=== PATIENT | female | born 1960 | race Caucasian/White ===

== ENCOUNTER → 2017-03-10 | Outpatient (CLI) | payer OTHER ==
--- NOTE | 2017-03-10 17:07 | XCELERA REPORT ---
[address] [address] Upper Extremity Arterial Evaluation Name: MATEO KHOURY Age: 56 yrs Gender: Female : 1960 Patient Status: Outpatient Patient Location: Study Date: 03/10/2017 10:46 AM Procedure: A duplex scan of the upper extremity arteries was performed on the right. Reason For Study: RIGHT WRIST PAIN Ordering Physician: TANYA CHAMPION Performed By: Ivania Moreno Measurements and Calculations Right Left Prox SCLA PSV 214.4 cm/sec Mid SCLA PSV -119.4 cm/sec Ax A PSV 62.5 cm/sec Dist Brach A PSV 140.4 cm/sec Dist Rad A PSV 59.0 cm/sec Dist Ulnar A PSV 88.6 cm/sec Ax A PSV 62.5 cm/sec Dist Brach A PSV 140.4 cm/sec Dist Rad A PSV 59.0 cm/sec Dist Ulnar A PSV 88.6 cm/sec Mid SCLA PSV -119.4 cm/sec Right Side Arterial Evaluation Normal velocity and triphasic waveforms noted from the Common Carotid artery to the forearm vessels. 0 % stenosis. Interpretation Summary No hemodynamically significant lesions noted in the right upper extremity arteries, on duplex imaging, at rest. : TANYA CHAMPION [place] >
== END ==
LOC: SP 10:20
PROVIDERS: ATTEND Orthopaedic Surgery
DX: M25.531 Pain in right wrist (principal)
CPT/HCPCS: 93931